=== PATIENT | female | born 1985 | race Two or more races ===

== ENCOUNTER 2017-06-29 20:14 | Emergency (ER) | payer MEDICAID ==
[~2017-06-29] VITALS: Ht 172.7 cm; Wt 131.0 kg
[~2017-06-29 20:14] MED LIST: PREN1TAB69 PO
[2017-06-29 20:17] VITALS: BP 152/99
== END 2017-06-29 22:08 | disposition home or self-care (01) ==
LOC: ED 21:55
DX: J06.9 Acute upper respiratory infection, unspecified (principal); J20.9 Acute bronchitis, unspecified
CPT/HCPCS: 71046; 99284; 99285

== ENCOUNTER 2019-08-30 08:55 | Emergency (ER) | payer MEDICAID, OTHER ==
[~2019-08-30] VITALS: Ht 172.7 cm; Wt 145.0 kg
--- NOTE | 2019-08-30 09:40 | NUR ---
PT WITH C/O L SIDED CHEST PAIN THAT MOVES TO LEFT ARM AND IN BETWEEN SHOULDER BLADES, PT STATES PAIN HAS BEEN ON AND OFF, CURRENLTY PAIN FREE AT THIS TIME. PT STATES SHE HAS RECENTLY BEGAN WORKING OUT AND SHE NOTICES THE PAIN PULL WHEN SHE MOVES HER LEFT ARM, MAKING HER BELIEVE IT IS A MUSCLE STRAIN. PT DENIES CP, DIZZINESS. PT TO CARD MONTIOR, BP, CONT PULSE OX
--- NOTE | 2019-08-30 10:10 | NUR ---
BREAK RN: POC DISCUSSED WITH PT AND QUESTIONS ANSWERED. WARM BLANKET PROVIDED. CALL LIGHT W/I REACH
[2019-08-30 10:40] VITALS: BP 124/80
--- NOTE | 2019-08-30 10:41 | NUR ---
PT AMBULATED TO BR, PT STATES MILDLY DIZZY, NO CP REPORTED. PT WITH STEADY GAIT
[2019-08-30 10:52] LABS: ANION GAP 4 mmol/L (5-15); BASOPHILS # (AUTO) 0.03 x10^3/uL (0-0.1); BASOPHILS % (AUTO) 0 % (0-1); CALCIUM 8.7 mg/dL (8.5-10.1); CHLORIDE 110 mmol/L (98-107); EOSINOPHILS % (AUTO) 2 % (1-7); LYMPHOCYTES # (AUTO) 1.68 x10^3/uL (1-3.4); LYMPHOCYTES % (AUTO) 19 % (22-44); MD NO; MEAN CORPUSCULAR HEMOGLOBIN 28.3 pg (27.0-34.8); MEAN CORPUSCULAR HGB CONC 32.3 g/dL (32.4-35.8); MEAN CORPUSCULAR VOLUME 87.8 fL (80-100); MEAN PLATELET VOLUME 9.3 fL (7.4-10.4); MONOCYTES # (AUTO) 0.65 x10^3/uL (0.2-0.8); MONOCYTES % (AUTO) 7 % (2-9); NEUTROPHILS # (AUTO) 6.23 x10^3/uL (1.8-6.8); NEUTROPHILS % (AUTO) 71 % (42-75); PLATELET COUNT 267 x10^3/uL (130-400); RED BLOOD COUNT 4.61 x10^6/uL (3.82-5.3); RED CELL DISTRIBUTION WIDTH 14.1 % (9.6-15.2)
[2019-08-30 10:53] LABS: CREATININE 0.71 mg/dL (0.55-1.02)
== END 2019-08-30 11:27 | disposition home or self-care (01) ==
LOC: ED 10:52
DX: S29.011A Strain of muscle and tendon of front wall of thorax, initial encounter (principal); R55 Syncope and collapse; R07.89 Other chest pain; R42 Dizziness and giddiness; X58.XXXA Exposure to other specified factors, initial encounter; Y93.89 Activity, other specified; Y92.098 Other place in other non-institutional residence as the place of occurrence of the external cause; Y99.8 Other external cause status
CPT/HCPCS: 36415; 71046; 80048; 82040; 85025; 93005; 99285